=== PATIENT | male | born 1990 | race Caucasian/White ===

== ENCOUNTER 2019-05-07 06:37 | Emergency (ER) | payer BC ==
--- NOTE | 2019-05-07 07:35 | EDM.PDOC ---
ED HPI GENERAL MEDICAL PROBLEM - General Chief Complaint: Back Pain or Injury Stated Complaint: LOWER BACK PAIN Time Seen by Provider: 05/07/19 07:29 Source of Information: Reports: Patient - History of Present Illness INITIAL COMMENTS - FREE TEXT/NARRATIVE: HISTORY AND PHYSICAL: History of present illness: [pt presents with LBP that began after lifting weights, he has had MRI through [facility], and dianosed with disc bulge or rupture, he is not certian he does have 6/10 pain radiating down right leg to the toe level that keeps him awake at night. he is on prednisone and nsaids with little benefit. awaiting DANY through [facility] no f/n/v/c/s/cp/sob/saleem/d/palp ] Review of systems: As per history of present illness and below otherwise all systems reviewed and negative. Past medical history: As per history of present illness and as reviewed below otherwise noncontributory. Surgical history: As per history of present illness and as reviewed below otherwise noncontributory. Social history: No reported history of drug or alcohol abuse. Family history: As per history of present illness and as reviewed below otherwise noncontributory. Physical exam: HEENT: Atraumatic, normocephalic, pupils reactive, negative for conjunctival pallor or scleral icterus, mucous membranes moist, throat clear, neck supple, nontender, trachea midline. Lungs: Clear to auscultation, breath sounds equal bilaterally, chest nontender. Heart: S1S2, regular, negative for clicks, rubs, or JVD. Abdomen: Soft, nondistended, nontender. Negative for masses or hepatosplenomegaly. Negative for costovertebral tenderness. Pelvis: Stable nontender. Genitourinary: Deferred. Rectal: Deferred. Extremities: Atraumatic, negative for cords or calf pain. Neurovascular unremarkable. no footdrop , saddle anesthesia bowel or urine symtpoms Neuro: Awake, alert, oriented. Cranial nerves II through XII unremarkable. Cerebellum unremarkable. Motor and sensory unremarkable throughout. Exam nonfocal. Diagnostics: [MRI through [facility], not availible today ] Therapeutics: [continue prednisone norco ] Impression: [Low back pain, right sciatic distribution pain ] Definitive disposition and diagnosis as appropriate pending reevaluation and review of above. low back Pain Score (Numeric/FACES): 8 - Related Data Allergies Allergy/AdvReac Type Severity Reaction Status Date / Time No Known Allergies Allergy Verified 05/07/19 06:40 Home Meds: Home Meds . [No Known Home Meds] 05/07/19 [History] Past Medical History - Past Health History Medical/Surgical History: Denies Medical/Surgical History Other Gastrointestinal History: Kidney stones Neurological History: Reports: None Other Endocrine/Metabolic History: Cutaneous Mastocytosis Oncologic (Cancer) History: Reports: None Other Dermatologic History: Cutaneous Mastocytosis - Infectious Disease History Infectious Disease History: Reports: None - Past Surgical History Other Musculoskeletal Surgeries/Procedures:: left ankle surgery Social & Family History - Family History Family Medical History: Noncontributory - Tobacco Use Used Tobacco, but Quit: No - Caffeine Use Caffeine Use: Reports: Coffee, Energy Drinks - Recreational Drug Use Recreational Drug Use: No ED ROS GENERAL - Review of Systems Review Of Systems: See Below ED EXAM, GENERAL - Physical Exam Exam: See Below Course - Vital Signs Last Recorded V/S: Last Vital Signs Temp 97.2 F 05/07/19 06:48 Pulse 62 05/07/19 06:48 Resp 18 05/07/19 06:48 BP 135/76 05/07/19 06:48 Pulse Ox 98 05/07/19 06:48 Departure - Departure Time of Disposition: 07:34 Disposition: Home, Self-Care 01 Condition: Good Clinical Impression: Low back pain - Discharge Information Referrals: PCP,None [Primary Care Provider] - Additional Instructions: medication as prescribed return if perist or worsen f/u primary care [facility] - Primary Care [address] [place] [address] The following information is given to patients seen in the emergency department who are being discharged to home. This information is to outline your options for follow-up care. We provide all patients seen in our emergency department with a follow-up referral. The need for follow-up, as well as the timing and circumstances, are variable depending upon the specifics of your emergency department visit. If you don't have a primary care physician on staff, we will provide you with a referral. We always advise you to contact your personal physician following an emergency department visit to inform them of the circumstance of the visit and for follow-up with them and/or the need for any referrals to a consulting specialist. The emergency department will also refer you to a specialist when appropriate. This referral assures that you have the opportunity for follow-up care with a specialist. All of these measure are taken in an effort to provide you with optimal care, which includes your follow-up. Under all circumstances we always encourage you to contact your private physician who remains a resource for coordinating your care. When calling for follow-up care, please make the office aware that this follow-up is from your recent emergency room visit. If for any reason you are refused follow-up, please contact the [facility] emergency department at and asked to speak to the emergency department charge nurse. Sepsis Event Note - Evaluation Sepsis Screening Result: No Definite Risk - Focused Exam Vital Signs: Vital Signs Temp Pulse Resp BP Pulse Ox 05/07/19 06:48 97.2 F 62 18 135/76 98 Date Exam was Performed: 05/07/19 Time Exam was Performed: 07:29
== END 2019-05-07 08:11 | disposition home or self-care (01) ==
LOC: MW.ED 06:37
DX: M54.41 Lumbago with sciatica, right side (principal)
CPT/HCPCS: 99283

== ENCOUNTER 2019-05-12 19:25 | Emergency (ER) | payer BC ==
[2019-05-12] MEDS ORDERED: Ketorolac 60 MG/2 ML SDV IM ONE (20:17)
--- NOTE | 2019-05-12 20:25 | EDM.PDOC ---
ED HPI GENERAL MEDICAL PROBLEM - General Chief Complaint: Back Pain or Injury Stated Complaint: LOWER BACK PAIN Time Seen by Provider: 05/12/19 19:37 Source of Information: Reports: Patient History Limitations: Reports: No Limitations - History of Present Illness INITIAL COMMENTS - FREE TEXT/NARRATIVE: HISTORY AND PHYSICAL: History of present illness: Patient is a 28-year-old male who presents to the ED today with concern of low back pain over the past several weeks. Patient states he has seen a primary care provider in the clinic and has had an MRI of his back recently. Patient states the MRI showed he had a bulging disc. Patient states he was referred to the pain clinic as well as a neurosurgeon. Patient states he has injections scheduled for next week, physical therapy, and has an appointment with the neurosurgeon on the of this month. Patient denies any new pain or new injury to his back or change from prior evaluation. Patient denies any saddle anesthesia or loss of bowel and bladder function. Patient states he is here in the ED because he took 2 [place] without relief of symptoms throughout today. Patient denies taking any other medications. Patient denies any other symptoms or concerns. Patient denies fever, chills, chest pain, shortness of breath, or cough. Denies headache, neck stiff ness, change in vision, syncope, or near syncope. Denies nausea, vomiting, abdominal pain, diarrhea, constipation, or dysuria. Has not noted any blood in urine or stool. Patient has been eating and drinking appropriately. Review of systems: As per history of present illness and below otherwise all systems reviewed and negative. Past medical history: As per history of present illness and as reviewed below otherwise noncontributory. Surgical history: As per history of present illness and as reviewed below otherwise noncontributory. Social history: See social history for further information Family history: As per history of present illness and as reviewed below otherwise noncontributory. Physical exam: General: Patient is alert, oriented, and in no acute distress. Patient sitting comfortably on exam table. HEENT: Atraumatic, normocephalic, pupils equal and reactive bilaterally, negative for conjunctival pallor or scleral icterus, mucous membranes moist, TMs normal bilaterally, throat clear, neck supple, nontender, trachea midline. No drooling or trismus noted. No meningeal signs. No hot potato voice noted. Lungs: Clear to auscultation, breath sounds equal bilaterally, chest nontender. Heart: S1S2, regular rate and rhythm without overt murmur Abdomen: Soft, nondistended, nontender. Negative for masses or hepatosplenomegaly. Negative for costovertebral tenderness. Pelvis: Stable nontender. Genitourinary: Deferred. Rectal: Deferred. Skin: Intact, warm, dry. No lesions or rashes noted. Extremities: Atraumatic, negative for cords or calf pain. Neurovascular unremarkable. No obvious deformity of the complete spine. No step-offs, crepitus to palpation of the complete spine. Patient does have some mild discomfort of generalized palpation of the lumbar spine. Neuro: Awake, alert, oriented. Cranial nerves II through XII unremarkable. Cerebellum unremarkable. Motor and sensory unremarkable throughout. Exam nonfocal. Notes: Discussed importance for follow-up with the neurosurgeon, pain specialist, his primary care provider, and physical therapy as he is scheduled. Voices understanding and is agreeable to plan of care. Denies any further questions or concerns at this time. Diagnostics: None Therapeutics: Toradol, Norflex Prescription: Diclofenac Impression: Chronic low back pain Plan: 1. Take medication as prescribed. You can also use prior medications that have been prescribed to you as directed for pain and discomfort. 2. Apply heat and/or ice 15 minutes on 15 minutes off as directed for pain and discomfort. 3. Follow-up with your primary care provider, neurosurgeon, pain specialist, and physical therapist as discussed scheduled. 4. To the ED as needed and as discussed. Definitive disposition and diagnosis as appropriate pending reevaluation and review of above. Lower Back Pain Score (Numeric/FACES): 9 - Related Data Allergies Allergy/AdvReac Type Severity Reaction Status Date / Time No Known Allergies Allergy Verified 05/12/19 19:55 Home Meds: Home Meds Hydrocodone/Acetaminophen [Hydrocodon-Acetaminophn 10-325] 1 each PO ASDIRECTED PRN 05/12/19 [History] Pregabalin [Lyrica] mg PO BID 05/12/19 [History] Past Medical History - Past Health History Medical/Surgical History: Denies Medical/Surgical History Other Gastrointestinal History: Kidney stones Other Musculoskeletal History: ruptured disk in L5 Neurological History: Reports: None Other Endocrine/Metabolic History: Cutaneous Mastocytosis Oncologic (Cancer) History: Reports: None Other Dermatologic History: Cutaneous Mastocytosis - Infectious Disease History Infectious Disease History: Reports: None - Past Surgical History Other Musculoskeletal Surgeries/Procedures:: left ankle surgery Social & Family History - Family History Family Medical History: Noncontributory - Caffeine Use Caffeine Use: Reports: Coffee - Recreational Drug Use Recreational Drug Use: No ED ROS GENERAL - Review of Systems Review Of Systems: Comprehensive ROS is negative, except as noted in HPI. ED EXAM, GENERAL - Physical Exam Exam: See Below (see dictation) Course - Vital Signs Last Recorded V/S: Last Vital Signs Temp 99.1 F 05/12/19 19:55 Pulse 76 05/12/19 19:55 Resp 20 05/12/19 19:55 BP 139/77 05/12/19 19:55 Pulse Ox 94 L 05/12/19 19:55 - Orders/Labs/Meds Meds: Medications Discontinued Medications Generic Name Dose Route Start Last Admin Trade Name Freq PRN Reason Stop Dose Admin Ketorolac Tromethamine 60 mg 05/12/19 20:17 Toradol IM 05/12/19 20:18 ONETIME ONE Orphenadrine Citrate 60 mg 05/12/19 20:17 Norflex IM 05/12/19 20:18 ONETIME ONE Departure - Departure Time of Disposition: 20:25 Disposition: Home, Self-Care 01 Clinical Impression: Chronic low back pain Qualifiers: Back pain laterality: unspecified Sciatica presence: unspecified whether sciatica present Qualified Code(s): M54.5 - Low back pain; G89.29 - Other chronic pain - Discharge Information Referrals: Jeovanny Andrews [Primary Care Provider] - Additional Instructions: The following information is given to patients seen in the emergency department who are being discharged to home. This information is to outline your options for follow-up care. We provide all patients seen in our emergency department with a follow-up referral. The need for follow-up, as well as the timing and circumstances, are variable depending upon the specifics of your emergency department visit. If you don't have a primary care physician on staff, we will provide you with a referral. We always advise you to contact your personal physician following an emergency department visit to inform them of the circumstance of the visit and for follow-up with them and/or the need for any referrals to a consulting specialist. The emergency department will also refer you to a specialist when appropriate. This referral assures that you have the opportunity for follow-up care with a specialist. All of these measure are taken in an effort to provide you with optimal care, which includes your follow-up. Under all circumstances we always encourage you to contact your private physician who remains a resource for coordinating your care. When calling for follow-up care, please make the office aware that this follow-up is from your recent emergency room visit. If for any reason you are refused follow-up, please contact the [facility] Emergency Department at and asked to speak to the emergency department charge nurse. [facility] [address] [place] [address] [id number] [address] [address] 1. Take medication as prescribed. You can also use prior medications that have been prescribed to you as directed for pain and discomfort. 2. Apply heat and/or ice 15 minutes on 15 minutes off as directed for pain and discomfort. 3. Follow-up with your primary care provider, neurosurgeon, pain specialist, and physical therapist as discussed scheduled. 4. To the ED as needed and as discussed. Sepsis Event Note - Evaluation Sepsis Screening Result: No Definite Risk - Focused Exam Vital Signs: Vital Signs Temp Pulse Resp BP Pulse Ox 05/12/19 19:55 99.1 F 76 20 139/77 94 L Date Exam was Performed: 05/12/19 Time Exam was Performed: 20:20
== END 2019-05-12 20:54 | disposition home or self-care (01) ==
LOC: MW.ED 19:25
DX: M54.5 Low back pain (principal); G89.29 Other chronic pain
CPT/HCPCS: 96372; 99283; J1885; J2360

== ENCOUNTER 2019-05-29 11:44 | Day surgery (SDC) | payer BC ==
[~2019-05-29 11:44] MED LIST: Betamethasone Acetate/Betamethasone Sod Phosphate 30 MG/5 ML MDV EPIDUR ONE; Iopamidol 200-M 10 ML vial ITHECAL ONE; Lidocaine 2% 5 ML SDV INJECT ONE; Ropivacaine 0.5% 5 MG/ML 30 ML SDV INJECT ONE
--- NOTE | 2019-05-29 20:12 | OR ---
SURGEON: Shaista Loza D.O. DATE OF PROCEDURE: 05/29/2019 PRIMARY SURGEON: Shaista Loza D.O. WHEELCHAIR RENTAL CLERK: OR staff present: 1. Hazel Ramirez. 2Nasreen Blackmon. 3Nasreen Encinas. PREOPERATIVE DIAGNOSES: 1. Lumbar L5-S1 herniated disk. 2. Lumbar right lower extremity L5-S1 radiculopathy. POSTOPERATIVE DIAGNOSES: 1. Lumbar L5-S1 herniated disk. 2. Lumbar right lower extremity L5-S1 radiculopathy. PROCEDURE PERFORMED: 1. Right transforaminal epidural steroid injection. 2. Fluoroscopic guidance for needle placement. 3. Local with oral Valium for sedation. SCREENING QUESTIONS: The patient answered "no" to all of the following questions: 1. Are you allergic to iodine, Betadine or latex? 2. Do you have a bleeding disorder? 3. Do you have any joint replacements, heart valve replacements, or a pacemaker? 4. Are you allergic to anti-inflammatories or blood thinners? 5. Do you have any current local or systemic infections? MEDICAL NECESSITY: This is a patient with a history of chronic low back pain and lower extremity radicular pain in the above dermatomal pattern that comes in for the above diagnostic and therapeutic procedure. Pertinent positives and negatives for this suspected disease process along with the diagnostic findings and testing are in the patient's history and physical exam. The most salient feature includes radicular pain in the above dermatomal pattern. The patient had failed attempts at conservative therapy including physical therapy, nonsteroidal anti- inflammatory drugs, and other medications. No contraindications to perform this procedure including medical, no bleeding disorders or infections, no psychological, no antisocial personality disorder or active addiction disorder. There are no work-related issues, and, in general, the patient does not have any history of multiple prior interventions, surgeries or nerve blocks which have failed to return the patient to function. The patient's other symptoms to be treated include numbness, paresthesia, dysesthesia or hypoesthesia referred into the left lower extremity or any weakness in the involved myotome. This procedure is being performed in accordance with national guidelines as written by the International [employer] ([place]). DESCRIPTION OF PROCEDURE: The patient had the procedure thoroughly explained including risks, benefits and alternatives. Consent was signed in my clinic indicating understanding and willingness to proceed. The patient presented to [facility] [place] where the patient was escorted to the dressing room to disrobe and change into a hospital gown. Preoperative vital signs were taken and stable. The patient reported that Valium was taken prior to the procedure. The patient was brought to the procedure room and placed in the prone position on the table. A pillow was placed under the abdomen in order to flatten the lumbar lordosis. The back was prepped with ChloraPrep and sterilely draped. All personnel in the operating room were dressed in appropriate attire including surgical scrubs, head and shoe covers. This was to ensure sterility while in the treatment room. During the time fluoroscopy was in use, all personnel in the operating room wore lead arellano with thyroid collars. Sterile technique was used during the procedure. The fluoroscope was placed for the right transforaminal epidural steroid injection. There was no sign of infection at the skin site for needle insertion. The skin was anesthetized with 2% lidocaine with a 27 gauge 1-1/2 inch needle. Then a 22 gauge 3-1/2 inch spinal needle, advanced to the right. Under direct fluoroscopic guidance needle position was verified in three views; AP, oblique and lateral, with 0.2 cubic centimeters increments of Isovue-200 dye. No intravascular flow pattern was observed under live fluoroscopy. Then 12 milligrams of Celestone was slowly injected after negative aspiration of heme, cerebrospinal fluid and no paresthesias were noted. The needle was cleared prior to removal from the skin. No adverse reactions were noted. The patient was brought to the recovery room awake and in good condition by my staff. The patient was monitored and discharge instructions were given after a brief stay in the recovery area. Both oral and written discharge and follow up instructions were given. The patient will follow up in the clinic in 3-4 weeks post procedure to evaluate the efficacy. The patient verbalized understanding including understanding of those signs and symptoms that would require emergency care and knows how to contact the office if there are any problems or questions in the meantime. PREOPERATIVE PAIN: 10. POSTOPERATIVE PAIN: 07/28. FOLLOWUP: Follow up in the Pain Clinic in 3 weeks or p.r.n. NANCY / LANCE /[id number]
== END 2019-05-29 14:07 ==
LOC: MW.SDS 11:44
PROVIDERS: ATTEND Anesthesiology
DX: M51.17 Intervertebral disc disorders with radiculopathy, lumbosacral region (principal)
CPT/HCPCS: 64483; J0702

== ENCOUNTER 2019-06-12 12:04 | Day surgery (SDC) | payer BC ==
--- NOTE | 2019-06-12 23:09 | OR ---
SURGEON: Shaista Loza D.O. DATE OF PROCEDURE: 06/12/2019 PRIMARY SURGEON: Shaista Loza D.O. RESIDENTIAL FEE APPRAISER: OR staff present: 1. Deon Mars RN. 2. Juni Fuller RN. 3. RT Ernestine. WOUND CLASS: I. PREOPERATIVE DIAGNOSES: 1. L5-S1 herniated disk. 2. Right L5-S1 radiculopathy. POSTOPERATIVE DIAGNOSES: 1. L5-S1 herniated disk. 2. Right L5-S1 radiculopathy. PROCEDURES PERFORMED: 1. Right L5 transforaminal epidural steroid injection. 2. Right S1 transforaminal epidural steroid injection 2. Fluoroscopic guidance for needle placement. 3. Local with oral Valium for sedation. SCREENING QUESTIONS: The patient answered "no" to all of the following questions: 1. Are you allergic to iodine, Betadine or latex? 2. Do you have a bleeding disorder? 3. Do you have any joint replacements, heart valve replacements, or a pacemaker? 4. Are you allergic to anti-inflammatories or blood thinners? 5. Do you have any current local or systemic infections? DESCRIPTION OF PROCEDURE: The patient had the procedure thoroughly explained including risks, benefits and alternatives. Consent was signed in my clinic indicating understanding and willingness to proceed. The patient presented to [facility] [place] where the patient was escorted to the dressing room to disrobe and change into a hospital gown. Preoperative vital signs were taken and stable. The patient reported that Valium was taken prior to the procedure. The patient was brought to the procedure room and placed in the prone position on the table. A pillow was placed under the abdomen in order to flatten the lumbar lordosis. The back was prepped with ChloraPrep and sterilely draped. All personnel in the operating room were dressed in appropriate attire including surgical scrubs, head and shoe covers. This was to ensure sterility while in the treatment room. During the time fluoroscopy was in use, all personnel in the operating room wore lead arellano with thyroid collars. Sterile technique was used during the procedure. The fluoroscope was placed for the right L5 transforaminal epidural steroid injection. There was no sign of infection at the skin site for needle insertion. The skin was anesthetized with 2% lidocaine with a 27 gauge 1-1/2 inch needle. Then a 22 gauge 3-1/2 inch spinal needle, advanced to the L5 foramen. Under direct fluoroscopic guidance needle position was verified in three views; AP, oblique and lateral, with 0.2 cubic centimeters increments of Isovue- 200 dye. No intravascular flow pattern was observed under live fluoroscopy. Then a mixture of 6 milligrams of Celestone and local was slowly injected after negative aspiration of heme, cerebrospinal fluid and no paresthesias were noted. The needle was cleared prior to removal from the skin. The procedure was then repeated as above for the right S1 transforaminal epidural steroid injection No adverse reactions were noted. The patient was brought to the recovery room awake and in good condition by my staff. The patient was monitored and discharge instructions were given after a brief stay in the recovery area. Both oral and written discharge and follow up instructions were given. The patient will follow up in the clinic in 3-4 weeks post procedure to evaluate the efficacy. The patient verbalized understanding including understanding of those signs and symptoms that would require emergency care and knows how to contact the office if there are any problems or questions in the meantime. PREOPERATIVE PAIN: 4 to 6 / 10. POSTOPERATIVE PAIN: 2/10. FOLLOWUP: In the Pain Clinic in 2 weeks. NANCY / LANCE /[id number] KRISTIN
== END 2019-06-12 13:57 | disposition home or self-care (01) ==
LOC: MW.SDS 12:04
PROVIDERS: ATTEND Anesthesiology
DX: M51.17 Intervertebral disc disorders with radiculopathy, lumbosacral region (principal); M48.02 Spinal stenosis, cervical region; M51.34 Other intervertebral disc degeneration, thoracic region; M51.16 Intervertebral disc disorders with radiculopathy, lumbar region; M48.061 Spinal stenosis, lumbar region without neurogenic claudication; M79.18 Myalgia, other site; F17.210 Nicotine dependence, cigarettes, uncomplicated; Z79.899 Other long term (current) drug therapy
CPT/HCPCS: 64483; 64484; J0702; 62323

== ENCOUNTER 2019-07-10 11:00 | Day surgery (SDC) | payer BC ==
[2019-07-10] MEDS ORDERED: Ropivacaine 0.5% 5 MG/ML 30 ML SDV INJECT ONE (12:30)
[2019-07-10] MEDS ORDERED: Iopamidol 200-M 10 ML vial ITHECAL ONE (12:30)
[2019-07-10] MEDS ORDERED: Betamethasone Acetate/Betamethasone Sod Phosphate 30 MG/5 ML MDV EPIDUR ONE (12:30)
[2019-07-10] MEDS ORDERED: Lidocaine 2% 5 ML SDV INJECT ONE (12:30)
--- NOTE | 2019-07-10 19:51 | OR ---
SURGEON: Shaista Loza D.O. DATE OF PROCEDURE: 07/10/2019 PRIMARY SURGEON: Shaista Loza D.O. PRODUCT DEVELOPMENT SPECIALIST: OR staff present: 1. Juni Fuller RN. 2. Deon Mars RN. 3. Oral Blackmon RN. 4. Danyel Encinas RT. WOUND CLASS: I. PREOPERATIVE DIAGNOSES: 1. Lumbar L5-S1 herniated disk. 2. Lumbar right L5-S1 radiculopathy. POSTOPERATIVE DIAGNOSES: 1. Lumbar L5-S1 herniated disk. 2. Lumbar right L5-S1 radiculopathy. PROCEDURES PERFORMED: 1. Right transforaminal epidural steroid injection at S1. 2. Fluoroscopic guidance for needle placement. 3. Local with oral Valium for sedation. SCREENING QUESTIONS: The patient answered "no" to all of the following questions: 1. Are you allergic to iodine, Betadine or latex? 2. Do you have a bleeding disorder? 3. Do you have any joint replacements, heart valve replacements, or a pacemaker? 4. Are you allergic to anti-inflammatories or blood thinners? 5. Do you have any current local or systemic infections? DESCRIPTION OF PROCEDURE: The patient had the procedure thoroughly explained including risks, benefits and alternatives. Consent was signed in my clinic indicating understanding and willingness to proceed. The patient presented to [facility] where the patient was escorted to the dressing room to disrobe and change into a hospital gown. Preoperative vital signs were taken and stable. The patient reported that Valium was taken prior to the procedure. The patient was brought to the procedure room and placed in the prone position on the table. A pillow was placed under the abdomen in order to flatten the lumbar lordosis. The back was prepped with ChloraPrep and sterilely draped. All personnel in the operating room were dressed in appropriate attire including surgical scrubs, head and shoe covers. This was to ensure sterility while in the treatment room. During the time fluoroscopy was in use, all personnel in the operating room wore lead arellano with thyroid collars. Sterile technique was used during the procedure. The fluoroscope was placed for the S1 transforaminal epidural steroid injection. There was no sign of infection at the skin site for needle insertion. The skin was anesthetized with 2% lidocaine with a 27 gauge 1-1/2 inch needle. Then a 22 gauge 3-1/2 inch spinal needle, advanced to the S1 foramen. Under direct fluoroscopic guidance needle position was verified in three views; AP, oblique and lateral, with 0.2 cubic centimeters increments of Isovue-200 dye. No intravascular flow pattern was observed under live fluoroscopy.Then a mixture of local and 12 milligrams of Celestone was slowly injected after negative aspiration of heme, cerebrospinal fluid and no paresthesias were noted. The needle was cleared prior to removal from the skin. No adverse reactions were noted. The patient was brought to the recovery room awake and in good condition by my staff. The patient was monitored and discharge instructions were given after a brief stay in the recovery area. Both oral and written discharge and follow up instructions were given. The patient will follow up in the clinic in 3-4 weeks post procedure to evaluate the efficacy. The patient verbalized understanding including understanding of those signs and symptoms that would require emergency care and knows how to contact the office if there are any problems or questions in the meantime. PREOPERATIVE PAIN: 3 to 9 out of 10. POSTOPERATIVE PAIN: 3 out of 10. FOLLOWUP: In the Pain Clinic in 3 weeks. NANCY / LANCE /[id number] KRISTIN
== END 2019-07-10 13:05 | disposition home or self-care (01) ==
LOC: MW.SDS 11:00
PROVIDERS: ATTEND Anesthesiology
DX: M51.17 Intervertebral disc disorders with radiculopathy, lumbosacral region (principal)
CPT/HCPCS: 64483; J0702; 62323

== ENCOUNTER 2019-07-24 19:25 | Emergency (ER) | payer BC ==
[2019-07-24] MEDS ORDERED: HYDROmorphone 1 MG/ML Syringe IM ONE (19:51)
--- NOTE | 2019-07-24 19:58 | EDM.PDOC ---
ED HPI GENERAL MEDICAL PROBLEM - General Chief Complaint: Back Pain or Injury Stated Complaint: SICK Time Seen by Provider: 07/24/19 19:52 Source of Information: Reports: Patient - History of Present Illness INITIAL COMMENTS - FREE TEXT/NARRATIVE: The patient is a 29-year-old male with a known disc herniation who presents to the ER for low back pain with right leg radiculopathy. The patient actually has an OxyContin 10 mg narcotic prescription but he ran out and he has the new prescription with him but he cannot get it filled until Sunday. He states that he was trying to help out some guys at work and he lifted a heavy object and then he felt the sudden back pain with radiation down his right leg. He took his last OxyContin this morning but he cannot handle the pain any longer. He denies any weakness, no problems with bowel or bladder, no other acute complaints. Back Pain Score (Numeric/FACES): 10 - Related Data Allergies Allergy/AdvReac Type Severity Reaction Status Date / Time No Known Allergies Allergy Verified 07/02/19 16:18 Home Meds: Home Meds Diclofenac Sodium [Voltaren] 75 mg PO BIDMEALS PRN #15 tab.cr 05/12/19 [Rx] Pregabalin [Lyrica] 25 mg PO TID 05/12/19 [History] oxyCODONE 10 mg PO BID PRN 07/24/19 [History] Past Medical History - Past Health History Medical/Surgical History: Denies Medical/Surgical History Other Gastrointestinal History: Kidney stones Other Musculoskeletal History: ruptured disk in L5 Neurological History: Reports: None Other Endocrine/Metabolic History: Cutaneous Mastocytosis Oncologic (Cancer) History: Reports: None Other Dermatologic History: Cutaneous Mastocytosis - Infectious Disease History Infectious Disease History: Reports: None - Past Surgical History Other Musculoskeletal Surgeries/Procedures:: left ankle surgery Social & Family History - Family History Family Medical History: Noncontributory - Caffeine Use Caffeine Use: Reports: Coffee ED ROS GENERAL - Review of Systems Review Of Systems: See Below (Positive for low back pain with right leg radiculopathy, negative for leg weakness, negative for bowel or bladder complaints, negative for flank pain, all other Positives and pertinent negatives as per HPI. All other pertinent systems were reviewed and are negative ) ED EXAM,LOWER BACK PAIN/INJURY - Physical Exam Exam: See Below Text/Narrative:: Constitutional: Looks very uncomfortable trying to find a position of comfort HEENT: Normocephalic, Atraumatic, EOMI Neck: Normal range of motion, No stridor, trachea midline Respiratory: No respiratory distress, No tachypnea Cardiovascular: Deferred Gastrointestinal: Deferred Genital / Urinary: Deferred Musculoskeletal: All four extremities present and atraumatic Back: FROM but very painful range of motion, no CVA tenderness Integument: Warm, Dry, Color is ethnicity appropriate, No rash. Neuro: Alert, Awake, oriented x3, motor strength equal in the bilateral lower extremities at 5/5, no focal deficits noted Psych: Affect, Judgement, mood normal Course - Vital Signs Text/Narrative:: The patient's history and exam are consistent with a disc herniation with radiculopathy but negative for cauda equina syndrome or other related pathology. The patient does have a ride home so I will give him 1 dose of Dilaudid 2 mg IM in the ER and 1 tablet of OxyContin 10 mg extended release to get him through the night and then he can contact his primary care physician to see if he can get his prescription filled 1 day early. Last Recorded V/S: Last Vital Signs Temp 36.6 C 07/24/19 19:45 Pulse 90 07/24/19 19:45 Resp 18 07/24/19 19:45 BP 141/98 H 07/24/19 19:45 Pulse Ox 97 07/24/19 19:45 - Orders/Labs/Meds Orders: Active Orders 24 hr Category Date Time Status oxyCODONE ER [OxyCONTIN] Med 07/24/19 21:00 Active 10 mg PO BEDTIME Medication Orders Oxycodone HCl (Oxycontin) 10 mg PO BEDTIME ELSIE Last Admin: 07/24/19 20:05 Dose: 10 mg Meds: Medications Generic Name Dose Route Start Last Admin Trade Name Freq PRN Reason Stop Dose Admin Oxycodone HCl 10 mg 07/24/19 21:00 07/24/19 20:05 Oxycontin PO 10 mg BEDTIME ELSIE Administration Discontinued Medications Generic Name Dose Route Start Last Admin Trade Name Freq PRN Reason Stop Dose Admin Hydromorphone HCl 2 mg 07/24/19 19:51 07/24/19 20:05 Dilaudid IM 07/24/19 19:52 2 mg ONETIME ONE Administration Departure - Departure Time of Disposition: 20:11 Disposition: Home, Self-Care 01 Condition: Good Clinical Impression: Back pain with right-sided radiculopathy - Discharge Information *PRESCRIPTION DRUG MONITORING PROGRAM REVIEWED*: Not Applicable *COPY OF PRESCRIPTION DRUG MONITORING REPORT IN PATIENT CHAITANYA: Not Applicable Referrals: PCP,None [Primary Care Provider] - Forms: ED Department Discharge Sepsis Event Note - Focused Exam Vital Signs: Vital Signs Temp Pulse Resp BP Pulse Ox 07/24/19 19:45 36.6 C 90 18 141/98 H 97 Date Exam was Performed: 07/24/19 Time Exam was Performed: 20:10 - My Orders Last 24 Hours: My Active Orders 07/24/19 21:00 oxyCODONE ER [OxyCONTIN] 10 mg PO BEDTIME - Assessment/Plan Last 24 Hours: My Active Orders 07/24/19 21:00 oxyCODONE ER [OxyCONTIN] 10 mg PO BEDTIME
[2019-07-24] MEDS ORDERED: oxyCODONE ER 10 MG TAB.ER PO SCH (21:00)
== END 2019-07-24 20:44 | disposition home or self-care (01) ==
LOC: MW.ED 19:25
DX: M54.16 Radiculopathy, lumbar region (principal)
CPT/HCPCS: 96372; 99283; A9270; J1170